=== PATIENT | female | born 1995 | race Caucasian/White ===

== ENCOUNTER 2017-07-04 11:20 | Emergency (ER) | payer BC, MEDICAID ==
--- NOTE | 2017-07-04 13:35 | Emergency Department Record ---
History of Present Illness - General Chief complaint: Throat foreign body Stated complaint: feels something in her throat Time Seen by Provider: 07/04/17 13:29 Source: Patient Mode of Arrival: Ambulatory Limitations: No limitations - History of Present Illness Initial comments: pt vomited and now feels she has something stuck in her throat. she can swallow water. complaint: Difficulty swallowing Onset/Timin -: Days(s) Severity: Moderate Severity scale (1-10): 1 Quality: Aching Consistency: Constant Improves with: None Worsens with: Eating, Swallowing Associated Symptoms: Pain with swallowing - Related Data Home Medications Medication Instructions Recorded Confirmed Last Taken Metoclopramide HCl [Reglan] 10 mg PO BID PRN 07/04/17 07/04/17 1 Day Ago ~07/03/17 Ondansetron [Zofran Odt] 4 mg PO Q8H PRN 07/04/17 07/04/17 1 Day Ago ~07/03/17 Allergies Allergy/AdvReac Type Severity Reaction Status Date / Time azithromycin Allergy HIVES Verified 07/04/17 12:13 [From Zithromax Z-Gaurang] Travel Screening - Travel/Exposure Within Last 30 Days Have you traveled within the last 30 days?: No - Travel/Exposure Within Last Year Have you traveled outside the [place] in the last year?: No - Additonal Travel Details Have you been exposed to anyone with a communicable illness?: No - Travel Symptoms Symptom Screening: None Review of Systems Reviewed: No additional complaints except as noted below Constitutional: Reports: As per HPI. Denies: Chills, Fever, Malaise, Night sweats, Weakness, Weight change Eyes: Reports: As per HPI. Denies: Eye discharge, Eye pain, Photophobia, Vision change ENT: Reports: As per HPI. Denies: Congestion, Dental pain, Ear pain, Epistaxis , Hearing loss, Throat pain Respiratory: Reports: As per HPI. Denies: Cough, Dyspnea, Hemoptysis, Stridor, Wheezes Cardiovascular: Reports: As per HPI. Denies: Arrhythmia, Chest pain, Dyspnea on exertion, Edema, Murmurs, Orthopnea, Palpitations, Paroxysmal nocturnal dyspnea, Rheumatic Fever, Syncope Endocrine: Reports: As per HPI. Denies: Fatigue, Heat or cold intolerance, Polydipsia, Polyuria Gastrointestinal: Reports: As per HPI. Denies: Abdominal pain, Constipation, Diarrhea, Hematemesis, Hematochezia, Melena, Nausea, Vomiting Genitourinary: Reports: As per HPI. Denies: Abnormal menses, Discharge, Dyspareunia, Dysuria, Frequency, Hematuria, Incontinence, Retention, Urgency Musculoskeletal: Reports: As per HPI. Denies: Arthralgia, Back pain, Gout, Joint swelling, Myalgia, Neck pain Skin: Reports: As per HPI. Denies: Bruising, Change in color, Change in hair/ nails, Lesions, Pruritus, Rash Neurological: Reports: As per HPI. Denies: Abnormal gait, Confusion, Headache, Numbness, Paresthesias, Seizure, Tingling, Tremors, Vertigo, Weakness Psychiatric: Reports: As per HPI. Denies: Anxiety, Auditory hallucinations, Depression, Homicidal thoughts, Suicidal thoughts, Visual hallucinations Hematological/Lymphatic: Reports: As per HPI. Denies: Anemia, Blood Clots, Easy bleeding, Easy bruising, Swollen glands Past Medical History - SOCIAL HISTORY Smoking Status: Never smoker Alcohol Use: None Drug Use: None - RESPIRATORY Hx Respiratory Disorders: No - CARDIOVASCULAR Hx Cardio Disorders: No - NEURO Hx Neuro Disorders: No - GI Hx GI Disorders: No - Hx Genitourinary Disorders: No - ENDOCRINE Hx Endocrine Disorders: No - MUSCULOSKELETAL Hx Musculoskeletal Disorders: No - PSYCH Hx Psych Problems: No - HEMATOLOGY/ONCOLOGY Hx Hematology/Oncology Disorders: No Family Medical History Any Significant Family History?: Yes Hx Cancer: Grandparents Physical Exam - General General Appearance: Alert, Oriented x3, Cooperative, Mild distress - Head Head exam: Normal inspection - Eye Eye exam: Normal appearance, PERRL, EOMI Pupils: Normal accommodation - ENT ENT exam: Normal exam, Mucous membranes moist, Normal external ear exam, Normal orophraynx Ear exam: Normal external inspection. negative: External canal tenderness Nasal Exam: Normal inspection. negative: Discharge, Sinus tenderness Mouth exam: Normal external inspection, Tongue normal Teeth exam: Normal inspection. negative: Dental caries Throat exam: Normal inspection. negative: Tonsillar erythema, Tonsillar exudate - Neck Neck exam: Normal inspection, Full ROM. negative: Tenderness - Respiratory Respiratory exam: Normal lung sounds bilaterally. negative: Respiratory distress - Cardiovascular Cardiovascular Exam: Regular rate, Normal rhythm, Normal heart sounds - GI/Abdominal GI/Abdominal exam: Soft, Normal bowel sounds. negative: Tenderness - Rectal Rectal exam: Deferred - exam: Deferred - Extremities Extremities exam: Normal inspection, Full ROM, Normal capillary refill. negative: Tenderness - Back Back exam: Reports: Normal inspection, Full ROM. Denies: Muscle spasm, Rash noted, Tenderness - Neurological Neurological exam: Alert, CN II-XII intact, Normal gait, Oriented X3 - Psychiatric Psychiatric exam: Normal affect, Normal mood - Skin Skin exam: Dry, Intact, Normal color, Warm Course Vital Signs 07/04/17 12:05 Temperature 97.8 F Pulse Rate 98 H Respiratory 18 Rate Blood Pressure 117/69 Pulse Ox 98 Disposition Disposition: Discharge Clinical Impression: Foreign body in throat Qualifiers: Encounter type: initial encounter Qualified Code(s): T17.208A - Unspecified foreign body in pharynx causing other injury, initial encounter Disposition: Home, Self-Care Condition: (1) Good Instructions: Esophageal Foreign Body (ED) Additional Instructions: follow up with interchange agent, GI doctor or ENT doctor. return sooner if worse. Referrals: BRANDIN YEPEZ [DOCTOR OF OSTEOPATH] - QUENTIN GARCIA [DOCTOR OF OSTEOPATH] - Forms: Patient Portal Access Quality - Quality Measures Quality Measures: N/A - Blood Pressure Screening Does Patient Have Any of the Following: No Blood Pressure Classification: Normal BP Reading Systolic Measurement: 117 Diastolic Measurement: 69 Screening for High Blood Pressure: < Normal BP, F/U Not Required > [G8783]
== END 2017-07-04 13:42 | disposition home or self-care (01) ==
LOC: ER 11:20
DX: T17.208A Unspecified foreign body in pharynx causing other injury, initial encounter (principal)
CPT/HCPCS: 99282

== ENCOUNTER 2017-11-17 07:22 | Emergency (ER) | payer BC, MEDICAID ==
[2017-11-17 08:09] LABS: BASO % 0.1 % (0-6); EOS % 0.5 % (0-6); GRAN % 76.5 % (47-80); HEMATOCRIT 34.5 % (35.0-47.0); HEMOGLOBIN 11.5 gm/dl (11.6-16.0); LYMPH % 13.6 % (16-45); MEAN CELL VOLUME 84.4 fl (81-97); MEAN CORPUSCULAR HEMOGLOBIN 28.1 pg (27-33); MEAN CORPUSCULAR HGB CONC 33.3 g/dl (32-36); MONO % 9.3 % (0-9); PLATELET COUNT 226 K/uL (130-400); RED BLOOD COUNT 4.09 M/uL (3.80-5.40); RED CELL DISTRIBUTION WIDTH 12.9 % (11.5-14.5); WHITE BLOOD COUNT W/O DIFF 10.7 K/uL (4.2-12.2)
[2017-11-17] MEDS: 0.9 % SODIUM CHLORIDE 1,000 ML BAG IV ONE ×2 (08:11→09:17)
[2017-11-17 08:21] LABS: BLOOD UREA NITROGEN 4 mg/dL (6-20); CREATININE 0.4 mg/dL (0.5-0.9); EST GLOMERULAR FILTRATION RATE > 60 mL/min
[2017-11-17 08:22] LABS: TOTAL PROTEIN 6.5 g/dL (6.6-8.7)
[2017-11-17 08:24] LABS: GLUCOSE,RANDOM 81 mg/dL (74-109)
[2017-11-17 08:26] LABS: ALBUMIN 3.2 g/dL (4.0-5.0); ALT/SGPT 11 U/L (<33); AST/SGOT 14 U/L (10.0-35.0); URINE APPEARANCE CLEAR; URINE BILIRUBIN NEGATIVE (NEGATIVE); URINE BLOOD NEGATIVE (NEGATIVE); URINE COLOR YELLOW; URINE GLUCOSE (UA) NEGATIVE (NEGATIVE); URINE KETONE 15 mg/dL (NEGATIVE); URINE NITRITE NEGATIVE (NEGATIVE); URINE PROTEIN NEGATIVE (NEGATIVE); URINE UROBILINOGEN 0.2 E.U./dL (0.20 - 1.00)
[2017-11-17 08:27] LABS: ALKALINE PHOSPHATASE 74 U/L (35-104)
[2017-11-17 08:28] LABS: URINE LEUKOCYTE ESTERASE NEGATIVE (NEGATIVE)
--- NOTE | 2017-11-17 08:45 | Emergency Department Record ---
History of Present Illness - General Chief complaint: Flu Like Symptoms Stated complaint: FLU HAS GOTTEN WORSE Time Seen by Provider: 11/17/17 07:41 Source: Patient Mode of Arrival: Ambulatory Limitations: No limitations - History of Present Illness Initial comments: pt dxd w the flu and feels she is getting worse.she has a yellow prod cough and her chest daniels. she is vomiting and gets iv fluids everyday. she has body aches MD Complaint: Generalized weakness Onset/Timin -: Days(s) Location: Generalized Severity: Mild Severity scale (1-10): 8 Quality: Aching Consistency: Constant Associated Symptoms: Nausea/vomiting, Shortness of breath - [place] Coma Scale Eye Response: (4) Open spontaneously Motor Response: (6) Obeys commands Verbal Response: (5) Oriented [place] Total: 15 - Related Data Home Medications Medication Instructions Recorded Confirmed Last Taken Hydroxyzine HCl 25 mg PO TID PRN 11/17/17 11/17/17 1 Day Ago ~11/16/17 Oseltamivir Phosphate [Tamiflu] 75 mg PO BID 11/17/17 11/17/17 1 Day Ago ~11/16/17 Allergies Allergy/AdvReac Type Severity Reaction Status Date / Time azithromycin Allergy HIVES Verified 11/17/17 07:32 [From Zithromax Z-Gaurang] Travel Screening - Travel/Exposure Within Last 30 Days Have you traveled within the last 30 days?: No - Travel/Exposure Within Last Year Have you traveled outside the [place] in the last year?: No - Additonal Travel Details Have you been exposed to anyone with a communicable illness?: No - Travel Symptoms Symptom Screening: None Review of Systems Reviewed: No additional complaints except as noted below Constitutional: Reports: As per HPI. Denies: Chills, Fever, Malaise, Night sweats, Weakness, Weight change Eyes: Reports: As per HPI. Denies: Eye discharge, Eye pain, Photophobia, Vision change ENT: Reports: As per HPI. Denies: Congestion, Dental pain, Ear pain, Epistaxis , Hearing loss, Throat pain Respiratory: Reports: As per HPI. Denies: Cough, Dyspnea, Hemoptysis, Stridor, Wheezes Cardiovascular: Reports: As per HPI. Denies: Arrhythmia, Chest pain, Dyspnea on exertion, Edema, Murmurs, Orthopnea, Palpitations, Paroxysmal nocturnal dyspnea, Rheumatic Fever, Syncope Endocrine: Reports: As per HPI. Denies: Fatigue, Heat or cold intolerance, Polydipsia, Polyuria Gastrointestinal: Reports: As per HPI. Denies: Abdominal pain, Constipation, Diarrhea, Hematemesis, Hematochezia, Melena, Nausea, Vomiting Genitourinary: Reports: As per HPI. Denies: Abnormal menses, Discharge, Dyspareunia, Dysuria, Frequency, Hematuria, Incontinence, Retention, Urgency Musculoskeletal: Reports: As per HPI. Denies: Arthralgia, Back pain, Gout, Joint swelling, Myalgia, Neck pain Skin: Reports: As per HPI. Denies: Bruising, Change in color, Change in hair/ nails, Lesions, Pruritus, Rash Neurological: Reports: As per HPI. Denies: Abnormal gait, Confusion, Headache, Numbness, Paresthesias, Seizure, Tingling, Tremors, Vertigo, Weakness Psychiatric: Reports: As per HPI. Denies: Anxiety, Auditory hallucinations, Depression, Homicidal thoughts, Suicidal thoughts, Visual hallucinations Hematological/Lymphatic: Reports: As per HPI. Denies: Anemia, Blood Clots, Easy bleeding, Easy bruising, Swollen glands Past Medical History - SOCIAL HISTORY Smoking Status: Never smoker Alcohol Use: None Drug Use: None - RESPIRATORY Hx Respiratory Disorders: No - CARDIOVASCULAR Hx Cardio Disorders: No - NEURO Hx Neuro Disorders: No - GI Hx GI Disorders: No - Hx Genitourinary Disorders: No - ENDOCRINE Hx Endocrine Disorders: No - MUSCULOSKELETAL Hx Musculoskeletal Disorders: No - PSYCH Hx Psych Problems: No - HEMATOLOGY/ONCOLOGY Hx Hematology/Oncology Disorders: No Family Medical History Any Significant Family History?: Yes Hx Cancer: Grandparents Physical Exam - General General Appearance: Alert, Oriented x3, Cooperative, Mild distress - Head Head exam: Normal inspection - Eye Eye exam: Normal appearance, PERRL, EOMI Pupils: Normal accommodation - ENT ENT exam: Normal exam, Mucous membranes moist, Normal external ear exam, Normal orophraynx, TM's normal bilaterally Ear exam: Normal external inspection. negative: External canal tenderness Nasal Exam: Normal inspection. negative: Discharge, Sinus tenderness Mouth exam: Normal external inspection, Tongue normal Teeth exam: Normal inspection. negative: Dental caries Throat exam: Normal inspection. negative: Tonsillar erythema, Tonsillar exudate - Neck Neck exam: Normal inspection, Full ROM. negative: Tenderness - Respiratory Respiratory exam: Normal lung sounds bilaterally. negative: Respiratory distress - Cardiovascular Cardiovascular Exam: Normal rhythm, Normal heart sounds, Tachycardia - GI/Abdominal GI/Abdominal exam: Soft, Normal bowel sounds. negative: Tenderness - Rectal Rectal exam: Deferred - exam: Deferred - Extremities Extremities exam: Normal inspection, Full ROM, Normal capillary refill. negative: Tenderness - Back Back exam: Reports: Normal inspection, Full ROM. Denies: Muscle spasm, Rash noted, Tenderness - Neurological Neurological exam: Alert, Normal gait, Oriented X3, Reflexes normal - Psychiatric Psychiatric exam: Normal affect, Normal mood - Skin Skin exam: Dry, Intact, Normal color, Warm Course Vital Signs 11/17/17 07:24 Temperature 98.3 F Pulse Rate 118 H Respiratory 18 Rate Blood Pressure 115/72 Pulse Ox 98 - Reevaluation(s) Reevaluation #1: 11/17/17 09:47 pt feels much better Medical Decision Making - Lab Data Result diagrams: 11/17/17 08:00 11/17/17 08:00 Lab Results 11/17/17 11/17/17 11/17/17 Range/Units 08:00 08:00 08:00 WBC 10.7 (4.2-12.2) K/uL RBC 4.09 (3.80-5.40) M/uL Hgb 11.5 L (11.6-16.0) gm/dl Hct 34.5 L (35.0-47.0) % MCV 84.4 (81-97) fl MCH 28.1 (27-33) pg MCHC 33.3 (32-36) g/dl RDW 12.9 (11.5-14.5) % Plt Count 226 (130-400) K/uL MPV 9.0 (7.4-10.4) fl Gran % 76.5 (47-80) % Lymphocytes % 13.6 L (16-45) % Monocytes % 9.3 H (0-9) % Eosinophils % 0.5 (0-6) % Basophils % 0.1 (0-6) % Sodium 140 (136-145) mmol/L Potassium 3.3 L (3.4-4.5) mmol/L Chloride 104 (98-107) mmol/L Carbon Dioxide 22.0 (22-29) mmol/L Anion Gap 14.0 (7-16) BUN 4 L (6-20) mg/dL Creatinine 0.4 L (0.5-0.9) mg/dL Estimated GFR > 60 mL/min Random Glucose 81 (74-109) mg/dL Calcium 8.5 L (8.6-10.0) mg/dL Total Bilirubin 0.20 (0.2-1.0) mg/dL AST 14 (10.0-35.0) U/L ALT 11 (<33) U/L Alkaline Phosphatase 74 (35-104) U/L Total Protein 6.5 L (6.6-8.7) g/dL Albumin 3.2 L (4.0-5.0) g/dL Globulin 3.3 (1.4-4.8) gm/dL Albumin/Globulin Ratio 1.0 L (1.1-1.8) Urine Color Yellow Urine Appearance Clear Urine pH 6.5 (5.0-8.0) Ur Specific [place] 1.020 (1.002-1.030) Urine Protein Negative (NEGATIVE) Urine Glucose (UA) Negative (NEGATIVE) Urine Ketones 15 mg/dl H (NEGATIVE) Urine Blood Negative (NEGATIVE) Urine Nitrite Negative (NEGATIVE) Urine Bilirubin Negative (NEGATIVE) Urine Urobilinogen 0.2 (0.20 - 1.00) E.U./dL Ur Leukocyte Esterase Negative (NEGATIVE) Disposition Disposition: Discharge Clinical Impression: Influenza, Dehydration, Hyperemesis gravidarum Disposition: Home, Self-Care Condition: (1) Good Instructions: Influenza (ED), Dehydration (ED), Hyperemesis Gravidarum (ED) Additional Instructions: 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 return sooner if worse. push fluids. continue tamiflu. rest Forms: Patient Portal Access Quality - Quality Measures Quality Measures: N/A - Blood Pressure Screening Does Patient Have Any of the Following: No Blood Pressure Classification: Normal BP Reading Systolic Measurement: 115 Diastolic Measurement: 72 Screening for High Blood Pressure: < Normal BP, F/U Not Required > [G8705]
[2017-11-17] MEDS: POTASSIUM CHLORIDE 10 MEQ TAB PO ONE (09:16)
[2017-11-17] MEDS: HEPARIN SODIUM FLUSH 100 UNITS/ML SYR 5ML IVP ONE (10:21)
== END 2017-11-17 10:23 | disposition home or self-care (01) ==
LOC: ER 07:22
DX: O99.513 Diseases of the respiratory system complicating pregnancy, third trimester (principal); O21.1 Hyperemesis gravidarum with metabolic disturbance; E86.0 Dehydration; R06.02 Shortness of breath; Z3A.11 11 weeks gestation of pregnancy
CPT/HCPCS: 99284 ×2; 96360; 96361; 85025; 80053; 81003; J1642; J7030

== ENCOUNTER 2018-01-17 12:15 | Emergency (ER) | payer MEDICAID ==
[2018-01-17] MEDS ORDERED: ACETAMINOPHEN 325 MG TAB PO PRN (13:01)
--- NOTE | 2018-01-17 13:09 | Emergency Department Record ---
History of Present Illness - General Chief Complaint: Abdominal Pain Stated Complaint: PAIN FROM Time Seen by Provider: 01/17/18 12:55 Source: Patient Mode of Arrival: Ambulatory Limitations: No limitations - History of Present Illness Initial Comments: The patient is here due to developing pain to her incision site after lifting her 2 year old up yesterday. She had a delivery 12 days ago and was not supposed to lift. There has been no bleeding, drainage or opening up of the wound. The patient did deliver at [facility] 12 days ago. MD Complaint: Abdominal pain Onset/Timin -: Days(s) Severity scale (1-10): 6 Quality: Sharp Consistency: Constant Improves With: Rest Worsens With: Movement Associated Symptoms: Denies other symptoms - Related Data Home Medications Medication Instructions Recorded Confirmed Last Taken Tramadol HCl [Ultram] 50 mg PO Q8H 01/17/18 01/17/18 01/17/18 Allergies Allergy/AdvReac Type Severity Reaction Status Date / Time azithromycin Allergy HIVES Verified 01/17/18 12:56 [From Zithromax Z-Gaurang] Travel Screening - Travel/Exposure Within Last 30 Days Have you traveled within the last 30 days?: No Review of Systems Constitutional: Denies: Chills, Fever Past Medical History - SOCIAL HISTORY Smoking Status: Never smoker Alcohol Use: None Drug Use: None - RESPIRATORY Hx Respiratory Disorders: No - CARDIOVASCULAR Hx Cardio Disorders: No - NEURO Hx Neuro Disorders: No - GI Hx GI Disorders: No - Hx Genitourinary Disorders: No - ENDOCRINE Hx Endocrine Disorders: No - MUSCULOSKELETAL Hx Musculoskeletal Disorders: No - PSYCH Hx Psych Problems: No - HEMATOLOGY/ONCOLOGY Hx Hematology/Oncology Disorders: No Family Medical History Any Significant Family History?: Yes Hx Cancer: Grandparents Physical Exam - General General Appearance: Alert, Oriented x3, Cooperative, No acute distress - Head Head exam: Atraumatic, Normocephalic - Eye Eye exam: Normal appearance, PERRL - Neck Neck exam: Normal inspection, Full ROM. negative: Tenderness - Respiratory Respiratory exam: Normal lung sounds bilaterally. negative: Respiratory distress - Cardiovascular Cardiovascular Exam: Regular rate, Normal rhythm, Normal heart sounds - GI/Abdominal GI/Abdominal exam: Soft, Tenderness (There is tenderness to the L side of the surgical scar but no bleeding, swelling, or drainage is appreciated.). negative : Distended, Rigid - Extremities Extremities exam: Normal inspection, Full ROM, Normal capillary refill. negative: Tenderness Course Vital Signs 01/17/18 12:52 Temperature 97.8 F Pulse Rate 80 Respiratory 20 Rate Blood Pressure 101/84 Pulse Ox 99 - Reevaluation(s) Reevaluation #1: The patient is doing better at this time. Her pain is much better with the Tylenol. I did discuss the case with a nurse in the OB Dr. Amos's office and they do agree with the plan for discharge and F/U later this week. 01/17/18 13:58 Medical Decision Making - Lab Data Result diagrams: 01/17/18 13:25 01/17/18 13:25 Disposition Disposition: Discharge Clinical Impression: Post-op pain Disposition: Home, Self-Care Condition: (2) Stable Instructions: Abdominal Pain (ED) Additional Instructions: Please keep the surgical site clean and no lifting. Take Tylenol for pain and see your OB doctor in 1-2 days in the office. Please call for an appointment. Return to the ER for any worsening pain, fever, swelling, or redness. Forms: Patient Portal Access Time of Disposition: 14:04 Quality - Quality Measures Quality Measures: N/A - Blood Pressure Screening View Details: Yes Does Patient Have Any of the Following: No Blood Pressure Classification: Pre-Hypertensive BP Reading Systolic Measurement: 101 Diastolic Measurement: 84 Screening for High Blood Pressure: < Pre-Hypertensive BP, F/U Documented > [ G8950] Pre-Hypertensive Follow-up Interventions: Referral to alternative/primary care provider.
[2018-01-17] MEDS ORDERED: ACETAMINOPHEN 325 MG TAB PO ONE (13:16)
[2018-01-17 13:40] LABS: BASO % 0.2 % (0-6); EOS % 1.6 % (0-6); GRAN % 75.6 % (47-80); HEMATOCRIT 42.7 % (35.0-47.0); HEMOGLOBIN 13.9 gm/dl (11.6-16.0); LYMPH % 17.6 % (16-45); MEAN CELL VOLUME 82.6 fl (81-97); MEAN CORPUSCULAR HEMOGLOBIN 26.9 pg (27-33); MEAN CORPUSCULAR HGB CONC 32.6 g/dl (32-36); MEAN PLATELET VOLUME 8.5 fl (7.4-10.4); PLATELET COUNT 501 K/uL (130-400); RED BLOOD COUNT 5.17 M/uL (3.80-5.40); RED CELL DISTRIBUTION WIDTH 14.2 % (11.5-14.5); WHITE BLOOD COUNT W/O DIFF 11.1 K/uL (4.2-12.2)
[2018-01-17 14:53] LABS: BLOOD UREA NITROGEN 15 mg/dL (6-20); CREATININE 0.6 mg/dL (0.5-0.9); EST GLOMERULAR FILTRATION RATE > 60 mL/min
[2018-01-17 14:56] LABS: GLUCOSE,RANDOM 77 mg/dL (74-109)
== END 2018-01-17 14:09 | disposition home or self-care (01) ==
LOC: ER 12:15
DX: G89.18 Other acute postprocedural pain (principal); R10.30 Lower abdominal pain, unspecified
CPT/HCPCS: 80048; 85025; 99283